=== PATIENT | male | born 1985 | race Caucasian/White ===

== ENCOUNTER 2016-06-20 02:49 | Emergency (ER) | payer OTHER | END 2016-06-20 07:05 | disposition home or self-care (01) | LOC: ER1 02:49 | DX: S93.401A Sprain of unspecified ligament of right ankle, initial encounter (principal); F17.210 Nicotine dependence, cigarettes, uncomplicated; Z88.0 Allergy status to penicillin; Z88.2 Allergy status to sulfonamides; W21.05XA Struck by basketball, initial encounter | CPT/HCPCS: 29515; 73564; 73590; 73610; 73630; 99283 ==

== ENCOUNTER → 2020-05-24 | Outpatient (CLI) | payer OTHER ==
[~2020-05-24] MED LIST: DULOXETINE HCL20 MG PO; HYDROCODON-ACE1 EAC2 PO; NORCO 7.5-3251 EACH PO; PERCOCET 10-321 EACH PO
== END ==
LOC: KOH-I 11:37
DX: M79.641 Pain in right hand (principal); R22.31 Localized swelling, mass and lump, right upper limb
CPT/HCPCS: 73120

== ENCOUNTER → 2021-07-30 | Outpatient (CLI) | payer OTHER | LOC: LAB 16:19 | DX: R05.9 Cough, unspecified (principal); R06.02 Shortness of breath; Z20.822 Contact with and (suspected) exposure to COVID-19 | CPT/HCPCS: 71046; U0003 ==

== ENCOUNTER 2021-08-17 08:44 | Observation (INO) | payer OTHER ==
[~2021-08-17] VITALS: Ht 182.9 cm; Wt 105.7 kg
[2021-08-17 09:48] LABS: HEMOGLOBIN 15.9 gm/dl (14.0-17.5); RED BLOOD COUNT 4.73 M/UL (4.20-5.50); WHITE BLOOD COUNT 4.7 K/UL (4.5-11.0)
[2021-08-17 13:21] LABS: BUN/CREATININE RATIO 20 (0-10)
[2021-08-17] MEDS ORDERED: ASPIRIN EC81 MG PO (14:25)
[2021-08-17] MEDS ORDERED: WELLBUTRIN XL150 MG PO (14:26)
--- NOTE | 2021-08-17 22:56 | NUR ---
PATIENT COMPLAINING OF HEADACHE AND TINGLING IN ARMS AND LEGS. MD NOTIFIED AND ORDERS GIVEN FOR TYLENOL FOR HEADACHE AND IF TINGLING PERSISTS FOR ONE HOUR TO CALL BACK.
--- NOTE | 2021-08-17 23:38 | NUR ---
WENT TO REASSESS THE PATIENT AND THE PATIENT IS SLEEPING (SNORING) WILL CONTINUE TO MONITOR
[2021-08-18 02:06] LABS: HEMOGLOBIN 14.5 gm/dl (14.0-17.5); RED BLOOD COUNT 4.32 M/UL (4.20-5.50); WHITE BLOOD COUNT 4.3 K/UL (4.5-11.0)
[2021-08-18 02:34] LABS: BUN/CREATININE RATIO 18 (0-10)
[2021-08-18] MEDS ORDERED: LEVOFLOXACIN750 MG PO (14:03)
[2021-08-19 08:14] LABS: CHOLESTEROL, TOTAL 151 mg/dL (100-199); HDL CHOLESTEROL 43 mg/dL (>39); LDL CHOLESTEROL CALC 90 mg/dL (0-99); LDL/HDL RATIO 2.1 ratio (0.0-3.6); T. CHOL/HDL RATIO 3.5 ratio (0.0-5.0); TRIGLYCERIDES 98 mg/dL (0-149)
== END 2021-08-18 15:20 | disposition home or self-care (01) ==
LOC: ER1 08:44 → M/S 13:48 → CDU 13:48 → M/S 19:40
PROVIDERS: Emergency Medicine; Physician Assistant Medical; ADMIT Internal Medicine
DX: R07.89 Other chest pain (principal); J01.90 Acute sinusitis, unspecified; R04.0 Epistaxis; K92.0 Hematemesis; I10 Essential (primary) hypertension; F41.9 Anxiety disorder, unspecified; Z88.0 Allergy status to penicillin; Z98.890 Other specified postprocedural states; Z87.891 Personal history of nicotine dependence; Z20.822 Contact with and (suspected) exposure to COVID-19
CPT/HCPCS: ECHO; 36415; 71045; 80048; 80053; 80061; 82550; 82553; 83735; 84484; 85025; 85610; 85730; 93005; 93306; C9113; G0378; J1956; U0002

== ENCOUNTER 2021-08-20 11:48 | Emergency (ER) | payer OTHER ==
[~2021-08-20 11:48] MED LIST changes: +ASPIRIN EC81 MG PO; +LEVOFLOXACIN750 MG PO; +WELLBUTRIN XL150 MG PO
[2021-08-20] MEDS ORDERED: LEVOFLOXACIN500 MG PO (13:04)
[2021-08-20] MEDS ORDERED: WELLBUTRIN SR150 M1 PO (13:04)
== END 2021-08-20 13:24 | disposition home or self-care (01) ==
LOC: ER1 11:48
DX: Z76.0 Encounter for issue of repeat prescription (principal)
CPT/HCPCS: 99281

== ENCOUNTER 2021-08-28 10:47 | Emergency (ER) | payer OTHER ==
[~2021-08-28 10:47] MED LIST changes: +LEVOFLOXACIN500 MG PO; +WELLBUTRIN SR150 M1 PO
[2021-08-28 11:56] LABS: HEMOGLOBIN 14.2 gm/dl (14.0-17.5); RED BLOOD COUNT 4.21 M/UL (4.20-5.50); WHITE BLOOD COUNT 4.6 K/UL (4.5-11.0)
[2021-08-28 12:29] LABS: BUN/CREATININE RATIO 14 (0-10)
== END 2021-08-29 00:07 ==
LOC: ER1 10:47
PROVIDERS: Family Medicine
DX: R42 Dizziness and giddiness (principal); F41.9 Anxiety disorder, unspecified; F32.9 Major depressive disorder, single episode, unspecified; Z20.822 Contact with and (suspected) exposure to COVID-19
CPT/HCPCS: 70450; 80053; 80307; 81001; 82550; 82553; 84484; 85025; 93005; 99285; G0480; U0002